=== PATIENT | female | born 1980 | race Caucasian/White ===

== ENCOUNTER 2018-04-13 21:43 | Emergency (ER) | payer OTHER ==
[~2018-04-13] VITALS: Ht 152.4 cm; Wt 90.7 kg
[2018-04-13 21:55] VITALS: BP 137/83; Ht 152.4 cm; Wt 90.7 kg
== END 2018-04-14 01:20 | disposition left against medical advice (07) ==
LOC: ED 21:43
DX: Z53.21 Procedure and treatment not carried out due to patient leaving prior to being seen by health care provider (principal)

== ENCOUNTER 2019-07-10 23:55 | Emergency (ER) | payer OTHER ==
[~2019-07-10] VITALS: Ht 152.4 cm; Wt 90.3 kg
[2019-07-11 00:07] VITALS: BP 130/90; Ht 152.4 cm; Wt 90.3 kg
== END 2019-07-11 01:08 | disposition home or self-care (01) ==
LOC: ED 23:55
DX: J02.9 Acute pharyngitis, unspecified (principal); Z98.890 Other specified postprocedural states
CPT/HCPCS: J1885; J7030

== ENCOUNTER 2020-03-05 15:25 | Emergency (ER) | payer OTHER, SELFPAY ==
[~2020-03-05] VITALS: Ht 160 cm; Wt 88.5 kg
[2020-03-05 15:26] VITALS: BP 142/88; Ht 160 cm; Wt 88.5 kg
== END 2020-03-05 16:17 | disposition home or self-care (01) ==
LOC: ED 15:25
DX: R51.9 Headache, unspecified (principal); Z20.828 Contact with and (suspected) exposure to other viral communicable diseases